=== PATIENT | male | born 1960 | race Caucasian/White ===

== ENCOUNTER 2017-08-15 10:32 | Emergency (ER) | payer OTHER ==
[~2017-08-15] VITALS: Ht 188 cm; Wt 82.9 kg
[~2017-08-15 10:32] MED LIST: AVELOX400 MG PO; NOHOMEMEDS
[2017-08-15 10:43] VITALS: BP 116/80
[2017-08-15 12:40] LABS: EOSINOPHIL (%) 3.3 % (0-5); EOSINOPHIL COUNT 0.2 K/uL (0-0.3); HEMATOCRIT 32.6 % (38.0-50.0); IMMATURE GRANULOCYTE (%) 0.3 % (0.0-0.7); INSTRUMENT ABS NEUTROPHIL CT 4.4 K/uL; LYMPHOCYTE COUNT 1.3 K/uL (1.0-2.8); MCHC 33.1 G/DL (30.0-36.0); MCV 84.5 FL (86-99); MEAN PLAT.VOLUME 9.7 uM^3 (9.0-12.4); MONOCYTE (%) 6.5 % (3-12); MONOCYTE COUNT 0.4 K/uL (0-0.8); NEUTROPHIL (%) 68.8 % (45-76); NEUTROPHIL COUNT 4.4 K/uL (1.8-6.4); PLATELET COUNT 185 K/uL (156-360); RBC DIS.WIDTH-CV 13.9 % (11.8-14.6); RBC DIS.WIDTH-SD 43.2 % (39-53); RED BLOOD COUNT 3.86 M/uL (4.00-5.50); WHITE BLOOD COUNT 6.5 K/uL (4.1-10.2)
[2017-08-15 13:42] LABS: CHLORIDE 104 mEq/L (99-109); POTASSIUM 3.7 mEq/L (3.7-5.4); SODIUM 134 mEq/L (136-147)
[2017-08-15 13:44] LABS: GLUCOSE 114 mg/dL (70-99)
[2017-08-15 13:45] LABS: ANION GAP 7 MEQ/L (2-14)
[2017-08-15 13:46] LABS: TOTAL BILIRUBIN 0.6 mg/dL (0.0-1.0)
[2017-08-15 13:48] LABS: ALKALINE PHOSPHATASE 125 IU/L (3-129); GFR ESTIMATE (CALCULATED) > 59 mL/min/ (58.99-99999)
[2017-08-15 13:49] LABS: UREA NITROGEN (BUN) 7 mg/dL (9-23)
[2017-08-15 13:51] LABS: LIPASE 59 U/L (1.0-51.0)
== END 2017-08-15 12:55 | disposition left against medical advice (07) ==
LOC: EME 10:32
PROVIDERS: Emergency Medicine
DX: R19.00 Intra-abdominal and pelvic swelling, mass and lump, unspecified site (principal); F17.200 Nicotine dependence, unspecified, uncomplicated
CPT/HCPCS: 80053; 83690; 85025